=== PATIENT | male | born 1995 | race Caucasian/White ===

== ENCOUNTER 2019-03-13 09:10 | Emergency (ER) | payer BC, OTHER ==
[2019-03-13 09:26] VITALS: BP 135/91
--- NOTE | 2019-03-13 09:44 | UC ---
Complaint Male HPI - HPI Summary HPI Summary: 24 yo male presents with rectal pain. He tells me that for the last 2 weeks he has had worsening rectal pain and has noticed a bulge in this area. 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 Has been using preparation H with no relief. Over the last 5-6 days pain has significant worsened. Today he is having severe pain with walking or sitting. BM daily and is not loose and is without blood, but is very painful. He mentions that he has a history of vomiting, mouth sores, and unintentional weight loss. Currently denies fever, chills, abdominal pain, n/v/d, dysuria. He had seen GI in the past and was apparently supposed to undergo an EGD at some point, but was lost to follow up. - History of Current Complaint Chief Complaint: UCGeneralIllness Stated Complaint: PERSONAL Time Seen by Provider: 03/13/19 09:44 Hx Obtained From: Patient Onset/Duration: Gradual Onset Timing: Constant Severity Initially: Moderate Severity Currently: Severe Pain Intensity: 9 Pain Scale Used: 0-10 Numeric - Allergies/Home Medications Allergies/Adverse Reactions: Allergies Allergy/AdvReac Type Severity Reaction Status Date / Time shellfish Allergy Flushing Uncoded 03/13/19 09:14 Home Medications: Home Medications NK [No Home Medications Reported] 03/13/19 [History Confirmed 03/13/19] PMH/Surg Hx/FS Hx/Imm Hx - Additional Past Medical History Additional PMH: none - Surgical History Surgical History: None - Family History Known Family History: Positive: None - Social History Alcohol Use: None Substance Use Type: Marijuana Smoking Status (MU): Never Smoked Tobacco Review of Systems All Other Systems Reviewed And Are Negative: Yes Constitutional: Positive: Negative Skin: Positive: Other - Rectal pain Respiratory: Positive: Negative Cardiovascular: Positive: Negative Gastrointestinal: Positive: Negative Genitourinary: Positive: Negative Neurovascular: Positive: Negative Neurological: Positive: Negative Psychological: Positive: Negative Physical Exam - Summary Physical Exam Summary: GENERAL: NAD. WDWN. No pain distress. SKIN: Perianal ~4.0cm abscess that is severely TTP. Moderate erythema around the anus and TTP within the anal canal. No active drainage or bleeding. NECK: Supple. Nontender. No lymphadenopathy. CHEST: No accessory muscle use. Breathing comfortably and in no distress. CV: Pulses intact. Cap refill <2seconds NEURO: Alert. PSYCH: Age appropriate behavior. Triage Information Reviewed: Yes Vital Signs: Initial Vital Signs Temp 97.8 F 03/13/19 09:23 Pulse 110 03/13/19 09:23 Resp 20 03/13/19 09:23 BP 135/91 03/13/19 09:23 Pulse Ox 99 03/13/19 09:23 Vital Signs Reviewed: Yes Complaint Male Course/Dx - Course Course Of Treatment: Discussed case with Dr. Winkler. At this time I am unsure if this is a solely external perianal abscess or if there is some extension/sinus tract sunny- rectally. Given this, I advised pt to be further evaluated in the ED for likely CT with contrast and I&D under general anesthesia or moderate sedation. Pt was agreeable to this, but voiced concerns over finances as his insurance is not active until 03/16/19. Dr. Winkler discussed with the admitting hospitalist and it was determined that pt would likely be admitted from the ED regardless of CT findings in the ED, therefore pt will be a direct admit to the hospitalist service for further workup and treatment. Discussed with pt and his father today. Pt was given norco in the clinic for his discomfort and father will drive him to the hospital and report to admission for direct admit. - Differential Dx/Diagnosis Provider Diagnosis: Perianal abscess Discharge - Sign-Out/Discharge Documenting (check all that apply): Patient Departure All imaging exams completed and their final reports reviewed: No Studies - Discharge Plan Condition: Stable Disposition: ADMITTED TO [facility] Referrals: Mey Prater DIAL LATHE OPERATOR [Primary Care Provider] - Additional Instructions: Please go directly to admissions at the hospital. You were given 1 tablet of [place] in the clinic for your pain - Billing Disposition and Condition Condition: STABLE Disposition: Admitted to [facility]
[2019-03-13] MEDS: HYDROcodone/ACETAMIN 5-325 MG* 1 TAB PO ONE (10:30)
== END 2019-03-13 10:51 | disposition short-term general hospital (02) ==
LOC: UCEAST 09:10
DX: K61.0 Anal abscess (principal); Z91.013 Allergy to seafood
CPT/HCPCS: 99202; G0463

== ENCOUNTER 2019-03-13 10:59 | Observation (INO) | payer SELFPAY ==
[2019-03-13 12:01] LABS: Hematocrit 44 % (42-52); Hemoglobin 14.7 g/dL (14.0-18.0); Mean Corpuscular HGB Conc 34 g/dL (31-36); Mean Corpuscular Hemoglobin 29 pg (27-31); Mean Corpuscular Volume 85 fL (80-94); Mean Platelet Volume 7.1 fL (7.4-10.4); Platelet Count 240 10^3/uL (150-450); Red Blood Count 5.11 10^6 /uL (4.18-5.48); Red Cell Distribution Width 12 % (10.5-15); White Blood Count 13.7 10^3/uL (3.5-10.8)
[2019-03-13] MEDS: oxyCODONE/Acetamin 5/325 MG* TAB PO PRN ×3 (12:18→20:37)
[2019-03-13 12:21] LABS: ABS Eosinophils 0.1 10^3/ul (0-0.6); ABS Lymphocytes 1.2 10^3/ul (1.0-4.8); ABS Monocytes 1.6 10^3/ul (0-0.8); ABS Neutrophils 10.9 10^3/ul (1.5-7.7); Eosinophil % 0.4 %; Lymphocyte % 8.4 %
[2019-03-13 12:30] LABS: BUN/Creatinine Ratio 12.8 (8-20); Calcium 9.7 mg/dL (8.6-10.3); EGFR African American 145.6 (>60); EGFR Non-African American 120.3 (>60); Potassium 3.8 mmol/L (3.5-5.0)
[2019-03-13] MEDS ORDERED: Morphine INJ* 2 MG/ML 1 ML SYRINGE (TWO MG - NEW SYRINGE VERSION) IV PRN (12:37)
[2019-03-13] MEDS: Enoxaparin(*) 40 MG/0.4 ML SYR SUBCUT SCH (12:39)
[2019-03-13] MEDS ORDERED: Iohexol 300* (CONTRAST) 10 ML SDV IV ONE (12:55)
[2019-03-13] MEDS ORDERED: Zosyn per Pharmacy* NOTE FOLLOW UP SCH (13:00)
[2019-03-13] MEDS ORDERED: Piperacillin/Tazobac ADVAN(*) 3.375 GM in NS 0.9% 100 ML* 100 ML IVPB ONE (13:00)
[2019-03-13 13:04] LABS: C Reactive Protein 58.44 mg/L (<8.01)
[2019-03-13] MEDS ORDERED: Vancomycin per Pharmacy* NOTE FOLLOW UP PRN (13:08)
[2019-03-13] MEDS ORDERED: Clindamycin 300 MG IVPREMIX(* 300 MG/50 ML SDV IV SCH (13:30)
[2019-03-13] MEDS: Vancomycin(*) 750 MG in NS 0.9% 250 ML* 250 ML IVPB SCH ×2 (15:07→20:42)
--- NOTE | 2019-03-13 16:15 | HP ---
HISTORY AND PHYSICAL: DATE OF ADMISSION: 03/13/19. TIME OF ADMISSION: 12:30 a.m. PRIMARY CARE PHYSICIAN: None. CHIEF COMPLAINT: Rectal pain. HISTORY OF PRESENT ILLNESS: This is a 24-year-old man with a possible history of inflammatory bowel disease. However, he has not been fully worked up and has been traveling for work and has not had medical care for some time, who presented to urgent care this morning with rectal pain that began approximately 2 weeks ago. He does not currently have health insurance, so he was trying to wait it out until his health insurance kicks in on 03/16/19; however, the pain became unbearable this morning. At urgent care, he was noted to have an abscess and I was called for direct admission. He reports some subjective fevers. Regarding his gastroenterologic history, he has had almost monthly episodes of nausea and vomiting that lasts for a few days that is associated with severe abdominal pain and he describes these episodes as debilitating. He was supposed to have an upper endoscopy with Gastroenterology in [place], [place]. However, he deferred it due to cost. 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 When he first noticed some rectal discomfort he thought it was a hemorrhoid. However, the pain progressed. He has found bowel movements to be extremely painful, but has not had any diarrhea, hematochezia, or melena. He also offers that he recalls a time in high school when he was evaluated. PAST MEDICAL HISTORY: He reports having had a healthy childhood; however, recalls a time in high school when he thought he had a bowel obstruction. I do see a CAT scan from 2009 when he described this which showed no abnormal masses or fluid collections identified. He was not hospitalized at that time. CURRENT MEDICATIONS: None. 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 His emergency contact is his mother, Bethany at [phone]. He is sexually active with women only. He does not smoke cigarettes or drink alcohol. He occasionally smokes marijuana. REVIEW OF SYSTEMS: As per the HPI. Remainder of the 14-point review of systems is negative. PHYSICAL EXAMINATION GENERAL: Alert, thin, malnourished young man, who is in no distress. However, he does get episodes of extreme pain especially with movement. VITAL SIGNS: Temperature 98.1, heart rate 71, respiratory rate 16, pulse ox 99 % on room air, blood pressure 125/73. HEENT: Pupils equal, round, and reactive to light. Oral mucosa is moist. NECK: No JVP or cervical adenopathy. CHEST: He is in a regular rate and rhythm with no murmurs. LUNGS: Clear bilaterally. ABDOMEN: Scaphoid with no tenderness. Liver is palpable at the costal margin. He has no CVA tenderness. : He has a 3 cm abscess that is posterior to the scrotum with some surrounding erythema that is exquisitely tender to the touch. It has a central area of duskiness. EXTREMITIES: Thin. No edema. INTEGUMENTARY: Skin is intact with no rashes. DIAGNOSTIC STUDIES/LAB DATA: White blood cell 13.7, hemoglobin 14.7, and platelets 240 with 79% neutrophils. No bands. Sodium 139, potassium 3.8, chloride 102, bicarb 28, BUN 10, creatinine 0.78, glucose 104, lactic acid 1.5, CRP is 58. Urinalysis is pending. ASSESSMENT AND PLAN: This is a 24-year-old man with no diagnosed past medical history however some paroxysms that are suggestive of an inflammatory bowel disease, who presented to urgent care this morning with rectal pain and was a direct admission for a concern for a perirectal abscess. 1. Perirectal abscess: Initially, I had some concern for scrotal involvement given the location of the abscess. However, Dr. Fuentes has evaluated him and agrees with the assessment of a perirectal abscess. I have a CT pelvis with IV contrast pending and once we see the results, I will discuss this care with general surgery. I am treating him broadly at this point with vancomycin, clindamycin, and Zosyn. However, once we rule out gas forming organisms, I will deescalate this regimen. He has findings of sepsis and end-organ dysfunction and does not need IV fluids resuscitation at this point. 2. Question of inflammatory bowel disease. He certainly should have a GI workup; however, we will wait for his insurance issues to be resolved which he reports will happen on 03/16/19. 3. Uninsured status. We will request a social work consult to help him navigate this. 4. DVT prophylaxis, Lovenox. [id number]/[facility] #: [id number] [facility] CENTERDayna
[2019-03-13] MEDS: ZOSYN 3.375 GM Q8H per EXTENDED INFUSION IVPB SCH ×2 (16:40)
[2019-03-13 16:51] LABS: Urine Appearance Clear; Urine Bilirubin Negative (Negative); Urine Blood Negative (Negative); Urine Color Straw; Urine Glucose Negative (Negative); Urine Ketones 1+ (Negative); Urine Nitrite Negative (Negative); Urine Protein Negative (Negative); Urine Specific Gravity 1.036 (1.010-1.030); Urine Urobilinogen Negative (Negative)
--- NOTE | 2019-03-13 17:30 | CONS ---
CC: [facility] SURGICAL CONSULTATION REPORT: DATE OF CONSULT: 03/13/19 LOCATION: Room 401. HISTORY OF PRESENT ILLNESS: I was contacted by the hospitalist service to evaluate Mr. Elizabeth, a p atient who presented with severe perineal pain and was diagnosed with a perineal abscess. was con sulted and saw the patient and asked General Surgery be consulted. The patient underwent a CT scan. This was reviewed and it showed a 3 cm fluid-containing abscess in the perianal space anteriorly wit h a concern for possible fistulization. The patient describes being in pain for over 2 weeks now at the perianal site. He thought he had a h emorrhoid when he started noticing a more bulky lesion in the past 7 days. It did not drain. The pa karinejenise denied any previous similar symptoms. The patient describes 3-year history of intermittent abdominal pain and nausea. This is mostly in the upper abdomen. It will occur anywhere from once every 1 to 2 months. He has been diagnosed with ga stroesophageal reflux disease, but he does not believe it is this. He has never undergone endoscopy. He has been back and forth living in [place] and also here. He lives in [place] , does a fair amount of driving. The patient does not see a doctor regularly. PAST MEDICAL HISTORY: None. PAST SURGICAL HISTORY: None. SOCIAL HISTORY: Nonsmoker. Smokes marijuana once in a while. He is not working. He is currently li ving at his mom's house. REVIEW OF SYSTEMS: No change in bowel habits. No dysuria. PHYSICAL EXAM: He is afebrile. Vital signs are stable. He is lying in bed. He is in stable condit ion. He only grimaces when he moves to allow me to do an examination. When the patient is rolled ov er, it is easy to notice a spontaneously draining area in the perineum, about 2 cm area of necrotic s kin, pale in color. Pus is non-foul smelling. Some more pus is expressed. No bleeding. Rectal exam is not performed. DIAGNOSTIC STUDIES: CT scan reviewed. IMPRESSION AND PLAN: Spontaneously draining perineal abscess at approximately 6 o'clock anteriorly, fibrinous tissue, likely to be discharged over the course of the next couple of days. As this patien t's wound has opened up and will continue to drain pus, he can certainly irrigate the area and I disc ussed this with the hospitalist service. He can continue antibiotics and follow up as an outpatient in our offices. We will follow as long as the patient is here. [id number]/[facility] #: [id number]
[2019-03-14] MEDS: ZOSYN 3.375 GM Q8H per EXTENDED INFUSION IVPB SCH ×6 (01:01→17:19)
[2019-03-14] MEDS: oxyCODONE/Acetamin 5/325 MG* TAB PO PRN ×3 (02:31→18:57)
[2019-03-14] MEDS: Vancomycin(*) 750 MG in NS 0.9% 250 ML* 250 ML IVPB SCH ×2 (02:46→09:36)
[2019-03-14] MEDS ORDERED: Vancomycin Trough Check NOTE FOLLOW UP ONE (07:30)
[2019-03-14 08:08] LABS: Hematocrit 39 % (42-52); Hemoglobin 13.8 g/dL (14.0-18.0); Mean Corpuscular HGB Conc 35 g/dL (31-36); Mean Corpuscular Hemoglobin 29 pg (27-31); Mean Corpuscular Volume 84 fL (80-94); Mean Platelet Volume 7.4 fL (7.4-10.4); Platelet Count 222 10^3/uL (150-450); Red Cell Distribution Width 12 % (10.5-15); White Blood Count 6.9 10^3/uL (3.5-10.8)
[2019-03-14 08:18] LABS: EGFR African American 141.4 (>60); EGFR Non-African American 116.9 (>60)
[2019-03-14] MEDS: CMCS: Lactase Enzyme (NF) 3,000 UNIT TAB PO SCH ×3 (09:43→12:09)
[2019-03-14] MEDS: Enoxaparin(*) 40 MG/0.4 ML SYR SUBCUT SCH (12:12)
--- NOTE | 2019-03-14 14:08 | PN ---
Progress Note - Progress Note Date of Service: 03/14/19 Note: Em-rectal abscess Afeb, VS ok Pain decreased Small drainage Hesham po's Voiding well Exam Wound open and draining small amount of purulent material. No cellulitis Impr: Em-rectal abscess, now draining well May have underlying fistula, which can be followed as outpt May ultimately require surgery From surgical perspective, he could go home on oral abx Sitx baths BID and after BM's Stool softener (ie colace) F/U w/ Dr Rizvi in office 03/18/19 I discussed w/ pt and mother. D/W Dr Law
--- NOTE | 2019-03-14 18:38 | CONS ---
CC: Dr. Niesha Law; Dr. Shahram Rizvi CONSULTATION REPORT: DATE OF CONSULT: 03/14/19 REASON FOR CONSULT: Perirectal abscess with fistula. HISTORY OF PRESENT ILLNESS: This is a 24-year-old male with no past medical history, who presented t o the urgent care with 2 weeks of rectal pain. At the urgent care, he was found to potentially have a rectal abscess and was sent to the emergency room for further evaluation. The abscess had spontane ous drainage here with some improvement in his symptomatology. He denies any diarrhea or constipatio n on a regular basis, but admits that the stool was frequently loose in nature over the last many yea rs. He does have episodes of nausea and vomiting that occur almost monthly. It is associated with s evere abdominal pain that could be debilitating at times. The pain is sharp, diffuse throughout the abdomen. Nothing makes it better or worse and time seems to be the only thing that does resolve it. 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 He has significant concerns regarding his health insurance. He frankly denies overt weight loss, but notes that his current weight of 120 is less th an he was 6 months ago where he states that he was in the high 120s to even 130, but does note that h e does fluctuate from time to time. He denies any black or blood in the stool. Denies any typical G ERD or reflux. Currently denies abdominal pain. Admits to some rectal pain. Denies any skin rash o r lesions. Denies any eye or vision difficulties and also denies any new joint aches or pains. The remainder of the 14-point review of systems is grossly negative. PAST MEDICAL HISTORY: None. PAST SURGICAL HISTORY: None. CURRENT MEDICATIONS: None. ALLERGIES TO MEDICATIONS: Include SHELLFISH. 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 He does not consume alc ohol or smoke cigarettes. He occasionally smokes marijuana. REVIEW OF SYSTEMS: Remainder of the 14-point review of systems is grossly negative except for as willy cribed in the HPI. PHYSICAL EXAM: Vital Signs: Blood pressure is 132/70, pulse is 61, respiratory rate is 20, 100% on room air, and 97.6. In general, thin, slightly malnourished appearing young man, in no acute distres s. HEENT: Atraumatic, normocephalic. Pupils equal, round, reactive to light. Extraocular movements are intact. Conjunctivae are pink. Sclerae are anicteric. Neck: Supple. No JVD. Chest: Regular rate and rhythm. S1, S2. Lungs: Clear to auscultation bilaterally. Abdomen: Soft, nontender, nond istended. Bowel sounds positive. No guarding or rebound. Scaphoid appearance. Extremities: No cl ubbing, no cyanosis, no edema. Skin is without rash or lesions. Rectal: Deferred at this time. DIAGNOSTIC STUDIES/LAB DATA: Hemoglobin 13.8, platelet count 222. BUN is 9, creatinine 0.80. CRP i s 58. He had a pelvic CT on 03/13/19 that showed 3.2 cm right perianal abscess with an intersphincteric fis shawn. ASSESSMENT AND PLAN: This is a 24-year-old male with perirectal abscess and fistula. 1. Perirectal abscess with fistula. Spontaneously drained. Has been evaluated by the surgical serv ice with no further intervention at this point. He is recommended to be on p.o. antibiotics. The et iology of this perirectal abscess and fistula is unknown. He is a significantly thin appearing male with some chronic gastrointestinal issues over the years. A concern for inflammatory bowel disease, especially Crohn's is significantly high. I discussed that the best option would likely to consider a flexible sigmoidoscopy to see if there is any overt evidence of inflammatory bowel disease as an in patient given that that would change our course of treatment if this is indeed fistulizing Crohn's di sease. If fistulizing Crohn's disease, we would recommend potentially IV dose of Remicade to improve recovery. He is unsure if he wants to proceed at this time with flexible sigmoidoscopy given the un certainty of his insurance. He is going to call his insurance company and work with the avandeo to determine if he is eligible. If he does secure this, he is willing to do this as an inpatient. We will keep the patient n.p.o. and tentatively consider a flexible sigmoidoscopy on 03/15/19 to eval uate if any signs of inflammatory bowel disease. I discussed the risks, benefits, and alternatives t o the procedure and he would like to proceed pending the above. 2. Chronic malnutrition. We would consider getting albumin on 03/15/19 and a CMP. 3. Perirectal abscess. Management per surgical service. [id number]/[facility] #: [id number]
--- NOTE | 2019-03-14 21:07 | PN ---
Subjective Date of Service: 03/14/19 Interval History: Feeling a little better, pain is controlled with percocet. No fevers. He is anxious about meeting with social work about insurance. No nausea/vomiting, constipation, or diarrhea. Objective Active Medications: Enoxaparin Sodium (Lovenox(*)) 40 mg SUBCUT Q24H [facility] Last Admin: 03/14/19 12:12 Dose: 40 mg Piperacillin Sod/Tazobactam (Sod 3.375 gm/ Sodium Chloride) 100 mls @ 25 mls/ hr IVPB Q8H [facility] Last Admin: 03/14/19 17:19 Dose: 25 mls/hr Lactase (Lactaid Fast Act (Nf)) 3,000 unit PO TID WITH MEALS [facility]; Protocol Last Admin: 03/14/19 12:09 Dose: 3,000 unit Morphine Sulfate (Morphine Inj (Syringe))*) 2 mg IV Q2H PRN PRN Reason: PAIN Last Admin: 03/13/19 14:14 Dose: 2 mg Oxycodone/Acetaminophen (Percocet 5/325 Tab*) 1 tab PO Q4H PRN PRN Reason: Pain Last Admin: 03/14/19 18:57 Dose: 1 tab Pharmacy Consult (Zosyn Per Pharmacy*) 1 note FOLLOW UP .ZOSYN PER PHARMACY [facility] Pharmacy Consult (Vancomycin Per Pharmacy*) 1 note FOLLOW UP . PRN PRN Reason: PER PROTOCOL Pharmacy Profile Note (Vancomycin Trough Check) 1 note FOLLOW UP ONCE ONE Stop: 03/17/19 07:31 Vital Signs - 8 hr 03/14/19 03/14/19 15:18 18:57 Temperature 98.3 F Pulse Rate 65 Respiratory 18 18 Rate Blood Pressure 129/60 (mmHg) O2 Sat by Pulse 100 Oximetry Oxygen Devices in Use Now: None Appearance: alert, thin, nontoxic Ears/Nose/Mouth/Throat: NL Teeth, Lips, Gums Neck: NL Appearance and Movements; NL JVP Skin: - - perirectal abscess is flat without fluctuance or induration, not actively draining but open Neurological: Alert and Oriented x 3 Result Diagrams: 03/14/19 07:30 03/14/19 07:32 Microbiology and Other Data: Microbiology 03/13/19 15:58 Aerobic Blood Culture - Preliminary Blood Venous No Growth Day 1 Anaerobic Blood Culture - Preliminary No Growth Day 1 Assess/Plan/Problems-Billing Assessment: This is a 24 year old man with no PMH who presented with a perirectal abscess - Patient Problems (1) Perirectal abscess Current Visit: Yes Status: Acute Code(s): K61.1 - RECTAL ABSCESS SNOMED Code(s): 03181953 Comment: drained spontaneously intersphincteric fistula seen on CT continue IV antibiotics, can switch to PO when ready for discharge evaluated by GI today who recommend a flex sig prior to discharge history in combination with this abscess and fistula quite concerning for IBD
[2019-03-15] MEDS: CMCS: Lactase Enzyme (NF) 3,000 UNIT TAB PO SCH ×2 (00:02→14:56)
[2019-03-15] MEDS: ZOSYN 3.375 GM Q8H per EXTENDED INFUSION IVPB SCH ×4 (01:26→11:13)
[2019-03-15 14:48] LABS: Albumin 4.2 g/dL (3.2-5.2); Albumin/Globulin Ratio 1.4 (1-3); Indirect Bilirubin 0.4 mg/dL (0.3-1.0); Total Bilirubin 0.5 mg/dL (0.2-1.0); Total Protein 7.2 g/dL (6.4-8.9)
[2019-03-15 14:56] VITALS: BP 124/67
--- NOTE | 2019-03-15 20:05 | CONS ---
GASTROENTEROLOGY FOLLOWUP CONSULTATION DATE: 03/15/19 CONSULTING PHYSICIANS: Dr. Niesha Law, Dr. Nino Alaniz. HISTORY: The patient was interviewed in his room with his mother and his course reviewed with Dr. Law. To review, he said he was in his usual state of health in recent months, but then 2 weeks ago began a sense of funny discomfort in his tailbone area. It began to affect walking and he described it as a funny feeling until on 03/12/19 , when it began to be a focused pain and became severe and [facility]. He was feeling feverish. He had not had any chills. His bowel pattern had generally been his usual, which is 3, sometimes 4, sludgy , semiformed movements without any blood. He had not had any change in his overall health in the last couple of years or any unusual acute illness. He has, however, been subject to bouts of gastrointestinal distress and morning vomiting for many years. This might occur 3 to 5 times a year. He correlates it was stress. What will happen is that he will awaken some morning at 5 a.m. and he will be nauseated and then will vomit hourly for several hours and then typically the afternoon is better and he is able to eat a small meal and a small dinner. Having this happen multiple times each year, it has been occurring for many years. His mother confirms this as it was true when he was living at home. In 2013, he moved to [place] and he saw a economist research assistant there for 5 visits; but having no insurance, he never had any imaging or endoscopy. He cannot recall if he had any blood work. In 2009, there was a time when he did not have a bowel movement for a week and he came to the emergency room or is referred in by [facility] and had an CAT scan. Nothing was seen. He states "he worked himself out." In 2013, with lower abdominal pain, he was seen in the emergency room and had a CT of the abdomen and pelvis, which was unremarkable. Hemoglobin was normal then, though his white count was 19,000. Four months later, it was elevated at 13.1, but then 2 more CBCs in August and September 2014 showed a normal white count. He states his diet currently is that he prepares a stew with sausage beans, rice, and some vegetables and eats the leftovers on the second and third day. He does this currently. It is pretty much a stereotype diet. He avoids milk; that gives him trouble. Today, he states he is feeling much better. He is hungry. He has not had a fever while in the hospital and no actual bowel movements today. PHYSICAL EXAM: On exam, he is very slender, pleasant, young man, in no overt distress. His color appears good. HEENT exam is unremarkable. His abdomen is flat, symmetric with normal bowel sounds. He is nontender and there is no palpable abnormality anteriorly, although he tends to guard a little bit, but states there is no tenderness. Perianal infection shows the draining fistula in the right posterior area at about 2 o'clock orientation. There is no active drainage. Rectal was deferred. Extremities are unremarkable. LABORATORY DATA: Labs today, white count 6.9, hemoglobin 13.8, MCV 84. LFTs normal. Albumin 4.2. IMPRESSION: The perianal abscess has drained substantially and clinically he continues to improve. It is encouraging that he is hungry. abscess is certainly mysterious. He certainly could have Crohn's disease , though there is no sign that if present it would be anywhere outside of the anorectum. Because of that and with his improvement, this seems reasonable to extend a workup to get a little better perspective on things. He will go home on metronidazole 250 mg 3 times a day and try to broaden his diet a little bit. His mother was present during the discussion. In 10 days, CBC and CRP would be of interest. Eventually certainly, a sigmoidoscopy will be warranted or possibly a colonoscopy. At this time, there does not appear to be an urgent need to get the information from an unprepped sigmoidoscopy given his great reduction in pain. [id number]/[facility] #: [id number] AWILDA
[2019-03-15] MEDS: Enoxaparin(*) 40 MG/0.4 ML SYR SUBCUT SCH (20:30)
--- NOTE | 2019-03-16 00:59 | DS ---
DISCHARGE SUMMARY: DATE OF ADMISSION: 03/13/19 DATE OF DISCHARGE: 03/15/19 PRIMARY CARE PHYSICIAN: Dr. Alaniz at [facility]. PRINCIPAL DISCHARGE DIAGNOSES: 1. Perirectal abscess. 2. Intersphincteric fistula. 3. Concern for Crohn's disease. PHYSICAL EXAMINATION: At the time of discharge, temperature 98.0, heart rate 71 , respiratory rate 18, pulse ox 100% on room air, blood pressure 124/67. General: Thin, comfortable young man, in no distress. He is walking in his room with no trouble. HEENT: Pupils equal, round, reactive to light. Oral mucosa is moist. Neck: No JVP. No adenopathy. Chest: Regular rate and rhythm. No murmurs. Lungs are clear bilaterally. Abdomen: Soft, nontender, nondistended. No guarding or rebound. Extremities: No edema, rashes, or ulcers. Skin: The area of the abscess which is posterior to the scrotum is flat, drained, and has no further drainage, induration, fluctuance, or erythema. PERTINENT DATA: Blood cultures remained negative during his admission. A pelvis CT on the day of admission showed a 3.2-cm right perianal abscess with probable associated intersphincteric fistula. HOSPITAL COURSE BY PROBLEM: Perirectal abscess. Mr. Elizabeth was referred to us from [facility] with perirectal abscess and inability to walk. He was admitted for severe intractable pain. Dr. Rizvi was consulted and when he went to examine him, the abscess began draining spontaneously. It continued to drain and required no surgical intervention. He was maintained on IV Zosyn and Gastroenterology was consulted for concern for Crohn's disease given his history of GI symptoms and this perirectal abscess and fistula. His GI symptoms include monthly nausea and vomiting that he describes as debilitating. GI initially recommended a flex sig prior to discharge; however, Joe was very concerned about cost since his insurance is still pending and he elected to follow up as an outpatient with Dr. Galloway and Dr. Uriarte agreed. This was reasonable to allow the inflammation to come down. He is feeling well at the time of discharge. He is tolerating a full diet. He is walking without assistance. He is having normal bowel movements and he has been afebrile and his white count has resolved. DISPOSITION: Joe is being discharged to home with followup with primary care and Gastroenterology. TIME SPENT: Twenty-five minutes was spent on this discharge. [id number] #: [id number]
[2019-03-17] MEDS ORDERED: Vancomycin Trough Check NOTE FOLLOW UP ONE (07:30)
== END 2019-03-15 17:20 | disposition home or self-care (01) ==
LOC: MED 11:34
PROVIDERS: ADMIT Internal Medicine; ATTEND Internal Medicine
DX: K61.1 Rectal abscess (principal); K60.3 Anal fistula; K62.89 Other specified diseases of anus and rectum
CPT/HCPCS: 36415; 72193; 80048; 80076; 80202; 81003; 82565; 83605; 83690; 84520; 85025; 85027; 86140; 87040; A9270-GY; G0378; J1650; J2270; J2543; J3370; Q9967